=== PATIENT | male | born 1945 | race Caucasian/White ===

== ENCOUNTER → 2020-11-08 | Day surgery (SDC) | payer MEDICARE, BC ==
[~2020-11-08] MED LIST: ASPIRIN CHEWABL81 MG PO; BACTROBAN OINT22 GM EXT; BYDUREON P2 MG/0.65 SQ; ELIQUIS2.5 MG PO; FLOMAX0.4 MG PO; GLUCOTROL XL10 MG PO; IMDUR ER TAB 3030 MG PO; INVOKANA300 MG PO; ISOSORBIDE MONO30 MG PO; KENALOG IN ORABA5 GM TOP; LEVEMIR FL100 UNIT/1 SQ; LEVEMIR100 UNIT/1 SQ; LIPITOR TAB 1010 MG PO; LOPRESSOR50 MG PO; LUMIGAN 0.01%2.5 ML EYEBOTH; LYRICA300 MG PO; METOPROLOL SUCC25 MG PO; METROGEL60 GM TP; MIRALAX 119 GR119 GM PO; MUPIROCIN30 GM TP; NITROSTAT 0.40.4 MG SL; NOVOLOG MI100 UNIT/1 SC; PRINIVIL20 MG PO; PROTONIX 40 MG40 M1 PO; PROTONIX40 MG PO; SLOW RELEASE I142 MG PO; TOUJEO MAX300 UNIT/1 SC; VITAMIN B COMP1 EAC1 PO; VITAMIN C1000 MG PO; ZESTRIL5 MG PO; ZINC50 M2 PO; ZOFRAN ODT 4 MG4 MG PO
== END | disposition home or self-care (01) ==
LOC: OR 06:59
DX: D12.5 Benign neoplasm of sigmoid colon (principal); K57.30 Diverticulosis of large intestine without perforation or abscess without bleeding; D64.9 Anemia, unspecified; I48.0 Paroxysmal atrial fibrillation; I25.10 Atherosclerotic heart disease of native coronary artery without angina pectoris; I10 Essential (primary) hypertension; E11.9 Type 2 diabetes mellitus without complications; K21.9 Gastro-esophageal reflux disease without esophagitis; M19.90 Unspecified osteoarthritis, unspecified site; E78.5 Hyperlipidemia, unspecified; Z95.1 Presence of aortocoronary bypass graft; Z88.1 Allergy status to other antibiotic agents; Z79.01 Long term (current) use of anticoagulants; Z79.4 Long term (current) use of insulin; Z79.82 Long term (current) use of aspirin; Z79.899 Other long term (current) drug therapy
CPT/HCPCS: 82962; J2704; J7120

== ENCOUNTER → 2020-11-17 | Outpatient (CLI) | payer MEDICARE, BC | LOC: US 11:00 | DX: R60.0 Localized edema (principal); M25.562 Pain in left knee; M79.662 Pain in left lower leg; M25.472 Effusion, left ankle; I70.202 Unspecified atherosclerosis of native arteries of extremities, left leg; M17.12 Unilateral primary osteoarthritis, left knee; W19.XXXA Unspecified fall, initial encounter | CPT/HCPCS: 73562; 73610; 93971 ==